=== PATIENT | female | born 1990 | race Two or more races ===

== ENCOUNTER 2023-05-16 13:58 | Observation (INO) | payer MEDICAID ==
[~2023-05-16] VITALS: Ht 162.6 cm; Wt 106.7 kg
[2023-05-16 14:10] VITALS: BP 118/97; PULSE 81; RESP 90; O2SAT 99
== END 2023-05-16 15:48 | disposition home or self-care (01) ==
LOC: ER 13:58 → LDRP 14:48
PROVIDERS: ADMIT Obstetrics & Gynecology; ATTEND Obstetrics & Gynecology
DX: O9A.212 Injury, poisoning and certain other consequences of external causes complicating pregnancy, second trimester (principal); S16.1XXA Strain of muscle, fascia and tendon at neck level, initial encounter; R10.32 Left lower quadrant pain; M25.512 Pain in left shoulder; Z90.49 Acquired absence of other specified parts of digestive tract; Z3A.21 21 weeks gestation of pregnancy; V49.9XXA Car occupant (driver) (passenger) injured in unspecified traffic accident, initial encounter; Y93.89 Activity, other specified; Y92.488 Other paved roadways as the place of occurrence of the external cause; Y99.8 Other external cause status
CPT/HCPCS: 59025; 76815; 81002; 86900; 86901; 94760; 99284; G0378